=== PATIENT | female | born 1990 | race Caucasian/White ===

== ENCOUNTER → 2019-07-02 | Outpatient (REF) | payer OTHER | LOC: M SFHCLERA 18:54 | PROVIDERS: ATTEND Family Medicine | DX: J02.9 Acute pharyngitis, unspecified (principal) ==

== ENCOUNTER 2019-12-09 18:41 | Emergency (ER) | payer OTHER ==
[~2019-12-09] VITALS: Ht 162.6 cm; Wt 75.0 kg
[2019-12-09] MEDS ORDERED: [UNRECOGNIZED DRUG - OTHER] (18:57)
[2019-12-09] MEDS ORDERED: ADVI100T PO (18:57)
[2019-12-09] MEDS ORDERED: NS 1,000 ML IV ONE (19:15)
[2019-12-09 20:04] LABS: BASO % 0.3 % (0.0-1.0); EOS % 0.3 % (0.0-3.0); HEMATOCRIT 43.6 % (36.0-47.0); HEMOGLOBIN 13.7 g/dl (12.0-15.5); LYMPH # 0.9 10^3/uL (1.5-5.0); LYMPH % 8.7 % (24.0-44.0); MEAN CORPUSCULAR HEMOGLOBIN 28.6 pg (27.0-33.0); MEAN CORPUSCULAR HGB CONC 31.4 g/dl (32.0-36.5); MONO # 0.5 10^3/uL (0.0-0.8); MONO % 4.6 % (0.0-5.0); NEUTROPHILS # 8.6 10^3/uL (1.5-8.5); NEUTROPHILS % 85.7 % (36.0-66.0); PLATELET COUNT, AUTOMATED 236 10^3/uL (150-450); RED BLOOD COUNT 4.79 10^6/uL (4.00-5.40); WHITE BLOOD COUNT 10.1 10^3/uL (4.0-10.0)
[2019-12-09 20:43] LABS: ALBUMIN 1.8 GM/DL (3.2-5.2); ALT/SGPT 96 U/L (12-78); BILIRUBIN,DIRECT 0.2 MG/DL (0.0-0.2); BILIRUBIN,TOTAL 0.5 MG/DL (0.2-1.0); BLOOD UREA NITROGEN 5 MG/DL (7-18); CARBON DIOXIDE LEVEL 16 MEQ/L (21-32); CHLORIDE LEVEL 126 MEQ/L (98-107); CREATININE FOR GFR 0.23 MG/DL (0.55-1.30); GLOMERULAR FILTRATION RATE > 60.0 (>60); GLUCOSE, FASTING 55 MG/DL (70-100); LIPASE 60 U/L (73-393); POTASSIUM SERUM 2.2 MEQ/L (3.5-5.1); SODIUM LEVEL 148 MEQ/L (136-145); TOTAL PROTEIN 3.6 GM/DL (6.4-8.2)
[2019-12-09 20:44] LABS: CALCIUM LEVEL < 5.0 MG/DL (8.5-10.1)
[2019-12-09 21:39] LABS: BLOOD UREA NITROGEN 8 MG/DL (7-18); CALCIUM LEVEL 8.1 MG/DL (8.5-10.1); CARBON DIOXIDE LEVEL 23 MEQ/L (21-32); CHLORIDE LEVEL 106 MEQ/L (98-107); CREATININE FOR GFR 0.81 MG/DL (0.55-1.30); GLOMERULAR FILTRATION RATE > 60.0 (>60); GLUCOSE, FASTING 88 MG/DL (70-100); POTASSIUM SERUM 4.1 MEQ/L (3.5-5.1); SODIUM LEVEL 137 MEQ/L (136-145)
[2019-12-09] MEDS ORDERED: ISOVUE-370 76% 100ML VIAL (Q9967) As Ordered ONE (21:57)
[2019-12-09] MEDS ORDERED: MORPHINE 4 MG/ML 1ML VIAL/SYRINGE (J2270) IV ONE (22:00)
--- NOTE | 2019-12-09 23:02 | REPVR ---
PROCEDURE INFORMATION: Exam: CT Abdomen And Pelvis With Contrast Exam date and time: 12/09/2019 10:19 PM Age: 29 years old Clinical indication: Abdominal pain; Generalized; Additional info: Bilateral flank pain; R/O pyelonephritis TECHNIQUE: Imaging protocol: Computed tomography of the abdomen and pelvis with intravenous contrast. Radiation optimization: All CT scans at this facility use at least one of these dose optimization techniques: automated exposure control; mA and/or kV adjustment per patient size (includes targeted exams where dose is matched to clinical indication); or iterative reconstruction. Contrast material: ISOVUE 370; Contrast volume: 100 ml; Contrast route: IV; COMPARISON: No relevant prior studies available. FINDINGS: Liver: Normal. No mass. Gallbladder and bile ducts: There has been prior cholecystectomy. No biliary duct dilation. Pancreas: Normal. No ductal dilation. Spleen: Normal. No splenomegaly. Adrenals: Normal. No mass. Kidneys and ureters: Normal. No hydronephrosis. Stomach and bowel: Mild intraluminal fluid and mucosal enhancement are noted in the small bowel. No wall thickening or other inflammatory changes. No bowel obstruction. The stomach and colon are unremarkable. Appendix: No evidence of appendicitis. Intraperitoneal space: Mild free fluid in the pelvis. Vasculature: Unremarkable. No abdominal aortic aneurysm. Lymph nodes: Unremarkable. No enlarged lymph nodes. Bladder: Unremarkable as visualized. Reproductive: Unremarkable as visualized. Bones/joints: Unremarkable. No acute fracture. Soft tissues: Unremarkable. IMPRESSION: 1. Mild mucosal enhancement and intraluminal fluid in the small bowel is nonspecific but may indicate a viral enteritis. No obstruction. 2. Kidneys are unremarkable. No urinary tract obstruction or inflammatory process. Electronically signed by: Ramon Mcgovern On 12/09/2019 23:02:00 PM
[2019-12-09] MEDS ORDERED: KETO10TAB PO (23:25)
[2019-12-09] MEDS ORDERED: MACR100C43 PO (23:25)
[2019-12-09 23:29] VITALS: BP 109/63
[2019-12-09] MEDS ORDERED: NITROFURANTOIN (MACROBID) 100 MG CAP PO ONE (23:45)
[2019-12-10] MEDS ORDERED: KETOROLAC 30 MG/ML VIAL (J1885) IV ONE
--- NOTE | 2019-12-11 13:13 | ECGEPIP ---
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
== END 2019-12-09 23:58 | disposition home or self-care (01) ==
LOC: EDBD 18:41 → M ED 18:41
DX: N39.0 Urinary tract infection, site not specified (principal)
CPT/HCPCS: 74177; 80048; 80076; 81001; 83690; 85025; 87086; 93005; 93041; 96361; 96374; 96375; 99285; J1885; J2270; Q9967